=== PATIENT | male | born 1985 | race Hispanic/Latino ===

== ENCOUNTER 2022-12-16 12:46 | Emergency (ER) | payer OTHER, SELFPAY ==
[2022-12-16] MEDS ORDERED: Iopamidol 370 76% 100 ML VIAL ONE (16:15)
[2022-12-16] MEDS ORDERED: Ibuprofen 800 MG TAB ONE (16:16)
== END 2022-12-16 13:56 | disposition home or self-care (01) ==
LOC: BBPBJX 12:46 → BURERS 13:56
DX: S16.1XXA Strain of muscle, fascia and tendon at neck level, initial encounter (principal); S01.01XA Laceration without foreign body of scalp, initial encounter; S40.811A Abrasion of right upper arm, initial encounter; V54.5XXA Driver of pick-up truck or van injured in collision with heavy transport vehicle or bus in traffic accident, initial encounter
CPT/HCPCS: 72125; G0390; Q9967